=== PATIENT | female | born 1950 | race Caucasian/White ===

== ENCOUNTER → 2016-10-04 | Outpatient (CLI) | payer OTHER | LOC: FIMAGING 10:17 | PROVIDERS: ATTEND Internal Medicine | DX: Z12.31 Encounter for screening mammogram for malignant neoplasm of breast (principal); Z13.820 Encounter for screening for osteoporosis; M85.89 Other specified disorders of bone density and structure, multiple sites | CPT/HCPCS: G0202 ==

== ENCOUNTER → 2017-01-22 | Outpatient (CLI) | payer OTHER | LOC: FIMAGING 16:58 → EDSTATUS 17:01 → FIMAGING 17:01 | PROVIDERS: ATTEND Internal Medicine | DX: R05 Cough (principal) ==

== ENCOUNTER 2017-11-24 04:18 | Inpatient (IN) | payer OTHER ==
[2017-11-24] MEDS ORDERED: NS 1,000 ML IV ONE (04:24)
[2017-11-24] MEDS ORDERED: NITROGLYCERIN 0.4 MG BTL SL PRN (04:24)
--- NOTE | 2017-11-24 04:27 | EDPHY ---
H & P Time Seen by Provider: 11/24/17 04:25 HPI/ROS: HPI CHIEF COMPLAINT: Chest pain. HISTORY OF PRESENT ILLNESS: This is a very pleasant 67-year-old female, presents emergency room substernal chest pain radiates across her chest and down her left arm. Patient states her pain started at midnight. Progressed all night. Getting worse. It is now 430 in the morning. She called 911. She has pain constantly for that time. She thought it was reflux initially. She received full-dose aspirin and nitroglycerin by EMS. It is now feeling better. However still has the discomfort currently 04/05. Denies pleuritic pain or shortness of breath. States she has not had a cardiac evaluation. She does state that she has hyperlipidemia, borderline diabetes. But does not take any medications. Past Medical History: Denies significant medical history however states history hyperlipidemia, borderline diabetes, Past Surgical History: No recent surgery Social History: [facility] her . at bedside. Denies drugs alcohol or tobacco. Family History: Noncontributory ROS REVIEW OF SYSTEMS: 10 Systems were reviewed and negative with the exception of the elements mentioned in the history of present illness. Exam Constitutional triage nursing summary reviewed, vital signs reviewed, awake/ alert. Eyes normal conjunctivae and sclera, EOMI, PERRLA. HENT normal inspection, atraumatic, moist mucus membranes, no epistaxis, neck supple/ no meningismus, no raccoon eyes. Respiratory clear to auscultation bilaterally, normal breath sounds, no respiratory distress, no wheezing. Cardiovascular rate normal, regular rhythm, no murmur, no edema, distal pulses normal. Gastrointestinal soft, non-tender, no rebound, no guarding, normal bowel sounds, no distension, no pulsatile mass. Genitourinary no CVA tenderness. Musculoskeletal no midline vertebral tenderness, full range of motion, no calf swelling, no tenderness of extremities, no meningismus, good pulses, neurovascularly intact. Skin pink, warm, & dry, no rash, skin atraumatic. Neurologic awake, alert and oriented x 3, AAOx3, moves all 4 extremities equally, motor intact, sensory intact, CN II-XII intact, normal cerebellar, normal vision, normal speech. Psychiatric normal mood/affect. Heme/Lymph/Immune no lymphadenopathy. Differential diagnosis includes but is not limited to: ACS, atypical chest pain , pneumothorax, pneumonia, pulmonary embolism, aortic dissection, congestive heart failure, tumor, musculoskeletal pain, esophageal pain, GERD, peptic ulcer disease, pancreatitis Medical Decision Making: Plan for this patient IV establishment full monitoring and evaluation advisor obtain blood work, point care troponin, EKG, rule out acute coronary syndrome, chest x-ray. Re-evaluation: HEART Score for Major Cardiac Events from [email or web address] on 11/24/2017 All calculations should be rechecked by clinician prior to use RESULT SUMMARY: 9 points High Score (7-10 points) Risk of MACE of 50-65%. INPUTS: History > 2 = Highly suspicious EKG > 2 = Significant ST deviation Age > 2 = 64 Risk factors > 2 = 3 risk factors or history of atherosclerotic disease Initial troponin > 1 = 13 normal limit EKG interpretation by me on record in [facility] system. Impression time of EKG 4:26 a.m., sinus rhythm rate of 66, with ST elevation noted lead 1 and aVL concerning for acute ischemia. ST depression lead to 3 AVF concerning for acute ischemia. The EKG is concerning for an ST elevation RI. Given the patient's ongoing chest discomfort I have activated the cardiac alert system cardiac catheterization team. The patient received another dose of nitroglycerin. EKG concerning for acute ST elevation. Spoke with Dr. Back, he will take patient to phlebotomy lab assistant. Admit to ICU after cath. Cath Team activated. 0444: Patient prepped for cath team. Source: Patient, Family, EMS Constitutional: Initial Vital Signs O2 Sat (%) 98 11/24/17 04:24 O2 Delivery Mode Room Air O2 (L/minute) 2 Allergies/Adverse Reactions: epinephrine [From Adrenalin] Allergy (Verified 11/24/17 09:54) Rapid Heart Rate STATINS Allergy (Uncoded 11/24/17 09:54) Muscle Weakness Home Medications: Medication Instructions Recorded Herbals/Supplements -Info Only 1 ea PO DAILY 11/24/17 Magnesium Oxide [Magnesium Oxide 400 mg PO HS 11/24/17 400 mg (*)] Medical Decision Making - Data Points Laboratory Results: Laboratory Results 11/24/17 04:10 11/24/17 04:10 Medications Given: Lisinopril (Zestril) 5 mg PO DAILY DAWOOD Stop: 05/23/18 08:59 Last Admin: 11/24/17 08:55 Dose: 5 mg Metoprolol Tartrate (Lopressor) 25 mg PO BID DAWOOD Stop: 05/23/18 08:59 Last Admin: 11/24/17 19:59 Dose: 25 mg Nitroglycerin (Nitrostat) 0.4 mg SL Q5M PRN PRN Reason: Chest Pain Last Admin: 11/24/17 04:35 Dose: 0.4 mg Ticagrelor (Brilinta) 90 mg PO BID DAWOOD Stop: 05/23/18 18:59 Last Admin: 11/24/17 19:59 Dose: 90 mg Discontinued Medications Sodium Chloride (Ns) 1,000 mls @ 0 mls/hr IV EDNOW ONE; Wide Open PRN Reason: Protocol Stop: 11/24/17 04:25 Last Admin: 11/24/17 04:36 Dose: 1,000 mls Sodium Chloride (Ns) 1,000 mls @ 75 mls/hr IV CONT DAWOOD Stop: 11/24/17 19:04 Last Admin: 11/24/17 07:17 Dose: 1,000 mls Ondansetron HCl (Zofran) 4 mg IVP EDNOW ONE Stop: 11/24/17 04:44 Last Admin: 11/24/17 04:44 Dose: 4 mg Ticagrelor (Brilinta) 180 mg PO ONCE ONE Stop: 11/24/17 05:45 Last Admin: 11/24/17 07:17 Dose: Not Given Point of Care Test Results: Chemistry 11/24/17 04:25 POC Troponin I 0.22 ng/mL H ng/mL (0.00-0.08) Departure - Departure Disposition: [facility] Inpatient Acute Clinical Impression: Chest pain Qualifiers: Chest pain type: unspecified Qualified Code(s): R07.9 - Chest pain, unspecified ST elevation RI (STEMI) Qualifiers: Involved coronary artery: unspecified coronary artery Qualified Code(s): I21.3 - ST elevation (STEMI) myocardial infarction of unspecified site Condition: Serious
[2017-11-24 04:40] LABS: PLATELET COUNT 200 10^3/uL (150-400)
[2017-11-24] MEDS ORDERED: ONDANSETRON 4 MG/2 ML VIAL ONE (04:40)
[2017-11-24] MEDS ORDERED: ONDANSETRON 4 MG/2 ML VIAL IVP ONE (04:43)
[2017-11-24 04:47] LABS: INR 0.88 (0.83-1.16); PROTIME(PATIENT) 12.2 SEC (12.0-15.0)
[2017-11-24] MEDS ORDERED: fentaNYL 100 MCG/2 ML INJ ONE (05:09)
[2017-11-24] MEDS ORDERED: LIDOCAINE 1% 300 MG/30 ML SDV ONE (05:09)
[2017-11-24] MEDS ORDERED: IOPAMIDOL (ISOVUE-370) 150 ML BTL IV ONE (05:10)
[2017-11-24] MEDS ORDERED: MIDAZOLAM 2 MG/2 ML VIAL ONE (05:10)
--- NOTE | 2017-11-24 05:24 | PDGENHP ---
History and Physical - Chief Complaint Chest pain - History of Present Illness 59-year-old female no prior cardiovascular history will get midnight with the onset of substernal chest pressure radiating to both armpits associated with shortness of breath and nausea. She initially thought this was heartburn. She tried antacids. Symptoms progressed. She came to the emergency department by 911. Initial EKG interpreted by Dr. Carpenter showed ST elevation in 1 aVL and a cardiac alert was activated. On my arrival she was continued to have 3 to 4/10 substernal discomfort. She had mild nausea mild diaphoresis with no shortness of breath. She denied PND orthopnea. She has had no palpitations or syncope. Patient's past medical history is rule remarkable for hyperlipidemia. 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 She has no history of hypertension, smoking, diabetes. She has no family history of early heart disease. She takes no medications regularly. She has allergies/sensitivities to epinephrine. She has clear reaction to statins. History Information - Allergies/Home Medication List Allergies/Adverse Reactions: STATINS Allergy (Uncoded 11/24/17 04:29) I have personally reviewed and updated: family history, medical history, social history, surgical history - Past Medical History hyperlipidemia - Surgical History Reports: no pertinent surgical hx - Family History Positive for: non-pertinent (She is very active hiking. She was in the [place] for sleep 2 weeks ago without limitations.) - Social History Smoking Status: Never smoked Review of Systems Review of Systems: ROS: 10pt was reviewed & negative except for what was stated in HPI & below Physical Exam Physical Exam: Temp Pulse Resp BP Pulse Ox 36.7 C 72 18 144/88 H 98 11/24/17 04:26 11/24/17 05:04 11/24/17 05:04 11/24/17 05:04 11/24/17 05:04 O2 (L/minute) 2 Constitutional: no apparent distress Eyes: PERRL, anicteric sclera Ears, Nose, Mouth, Throat: moist mucous membranes Cardiovascular: regular rate and rhythym, no murmur, rub, or gallop, pulses symmetric bilaterally, No systolic murmur, No JVD Peripheral Pulses: 1+: carotid (R), carotid (L), femoral (R), femoral (L), dorsalis-pedis (R), dorsalis-pedis (L) Respiratory: no respiratory distress, no rales or rhonchi Gastrointestinal: normoactive bowel sounds, soft, non-tender abdomen, no palpable masses, No tenderness Genitourinary: no bladder fullness Skin: normal color, No rash Musculoskeletal: full muscle strength Neurologic: AAOx3, sensation intact bilaterally, No facial droop Psychiatric: interacting appropriately, not anxious Lymph, Heme, Immunologic: no cervical LAD, no supraclavicular LAD Lab Data & Imaging Review 11/24/17 04:10 11/24/17 04:10 WBC 9.04 10^3/uL (3.80-9.50) 11/24/17 04:10 RBC 4.71 10^6/uL (4.18-5.33) 11/24/17 04:10 Hgb 14.5 g/dL (12.6-16.3) 11/24/17 04:10 Hct 42.6 % (38.0-47.0) 11/24/17 04:10 MCV 90.4 fL (81.5-99.8) 11/24/17 04:10 MCH 30.8 pg (27.9-34.1) 11/24/17 04:10 MCHC 34.0 g/dL (32.4-36.7) 11/24/17 04:10 RDW 13.6 % (11.5-15.2) 11/24/17 04:10 Plt Count 200 10^3/uL (150-400) 11/24/17 04:10 MPV 10.1 fL (8.7-11.7) 11/24/17 04:10 Neut % (Auto) 63.2 % (39.3-74.2) 11/24/17 04:10 Lymph % (Auto) 28.2 % (15.0-45.0) 11/24/17 04:10 [place] % (Auto) 5.9 % (4.5-13.0) 11/24/17 04:10 Eos % (Auto) 1.8 % (0.6-7.6) 11/24/17 04:10 Baso % (Auto) 0.6 % (0.3-1.7) 11/24/17 04:10 Nucleat RBC Rel Count 0.0 % (0.0-0.2) 11/24/17 04:10 Absolute Neuts (auto) 5.72 10^3/uL (1.70-6.50) 11/24/17 04:10 Absolute Lymphs (auto) 2.55 10^3/uL (1.00-3.00) 11/24/17 04:10 Absolute Monos (auto) 0.53 10^3/uL (0.30-0.80) 11/24/17 04:10 Absolute Eos (auto) 0.16 10^3/uL (0.03-0.40) 11/24/17 04:10 Absolute Basos (auto) 0.05 10^3/uL (0.02-0.10) 11/24/17 04:10 Absolute Nucleated RBC 0.00 10^3/uL (0-0.01) 11/24/17 04:10 Immature Gran % 0.3 % (0.0-1.1) 11/24/17 04:10 Immature Gran # 0.03 10^3/uL (0.00-0.10) 11/24/17 04:10 PT 12.2 SEC (12.0-15.0) 11/24/17 04:10 INR 0.88 (0.83-1.16) 11/24/17 04:10 APTT 28.3 SEC (23.0-38.0) 11/24/17 04:10 Sodium 138 mEq/L (135-145) 11/24/17 04:10 Potassium 4.1 mEq/L (3.3-5.0) 11/24/17 04:10 Chloride 101 mEq/L (97-110) 11/24/17 04:10 Carbon Dioxide 25 mEq/l (22-31) 11/24/17 04:10 Anion Gap 12 mEq/L (8-16) 11/24/17 04:10 BUN 14 mg/dL (7-23) 11/24/17 04:10 Creatinine 0.7 mg/dL (0.6-1.0) 11/24/17 04:10 Estimated GFR > 60 11/24/17 04:10 Glucose 133 mg/dL (70-100) H 11/24/17 04:10 Calcium 10.3 mg/dL (8.5-10.4) 11/24/17 04:10 Magnesium 1.9 mg/dL (1.6-2.3) 11/24/17 04:10 Total Bilirubin 0.4 mg/dL (0.1-1.4) 11/24/17 04:10 Conjugated Bilirubin 0.1 mg/dL (0.0-0.5) 11/24/17 04:10 Unconjugated Bilirubin 0.3 mg/dL (0.0-1.1) 11/24/17 04:10 AST 26 IU/L (14-46) 11/24/17 04:10 ALT 39 IU/L (9-52) 11/24/17 04:10 Alkaline Phosphatase 109 IU/L (38-126) 11/24/17 04:10 POC Troponin I 0.22 ng/mL (0.00-0.08) H 11/24/17 04:25 NT-Pro-B Natriuret Pep 81 pg/mL (0-125) 11/24/17 04:10 Total Protein 7.3 g/dL (6.3-8.2) 11/24/17 04:10 Albumin 4.3 g/dL (3.5-5.0) 11/24/17 04:10 EKG additional interpertation: EKG reveals sinus rhythm. There is borderline ST elevation in [address] depression in the inferior leads. Assessment & Plan Assessment: Chest pain (Acute) ST elevation [place] (STEMI) (Acute) ST segment elevation myocardial infarction with elevation in troponin, abnormal EKG, classic history . Patient be taken the cardiac director of cardiac cath lab directly for angiography/intervention. Risks and benefits of this approach were discussed the patient. Differential diagnosis could be broadened attending results.
--- NOTE | 2017-11-24 05:24 | PDPROPOC ---
Sedation Plan of Care Sedation Plan of Care: vital signs stable, mental status noted, patient educated of risks, benefits, alternatives, patient can tolerate sedation ASA Classification: ASA 3 Planned drugs: fentanyl, midazolam Mallampati Score: Class 1 Mallampati Reference Image: Patient passed 3-3-2 rule?: Yes
[2017-11-24] MEDS ORDERED: BIVALIRUDIN 250 MG/5 ML VIAL IV ONE (05:31)
[2017-11-24] MEDS ORDERED: TICAGRELOR 90 MG TAB PO ONE (05:44)
[2017-11-24] MEDS ORDERED: ONDANSETRON 4 MG/2 ML VIAL IVP PRN (05:44)
[2017-11-24] MEDS ORDERED: ATROPINE SULFATE 1 MG/10 ML SYR IVP PRN (05:44)
[2017-11-24] MEDS ORDERED: NS 1,000 ML IV SCH (05:45)
[2017-11-24] MEDS ORDERED: TICAGRELOR 90 MG TAB ONE (05:48)
--- NOTE | 2017-11-24 05:52 | PDDXCAT ---
Diagnostic Cath Note - . Date: 11/24/17 Floor Care Specialist: Wong Indication: other (STEMI cardiac alert) - Procedure Access: right groin Procedure: left heart catheterization, coronary angiography, left ventriculogram - Materials Left Heart Cath size: 6F Left Heart Cath materials: standard multipack (JL4, JR4, pigtail) - Findings-Left Heart Catheterization LM: Unobstructed LAD: [id number]-[id number]-[id number] nonobstructive atheroma in the proximal LAD. Thrombotic occlusion of the principal diagonal LCX: Large vessel with diffuse luminal irregularities RCA: Dominant: Luminal irregularities not more than 20% EDP: 18 mm of mercury LVEF: 45% Wall motion: Lateral akinesis Complications: None Estimated blood loss: <50ml Closure method: Angioseal Assessment: ST segment elevation myocardial infarction with thrombotic occlusion of the principal diagonal. Reduced left ventricular systolic function ejection fraction 45% with lateral akinesis. Plan: PCI Intervention: After reviewing diagnostic angiograms elected proceed with emergency PCI. Patient was anticoagulated with Angiomax. Therapeutic ACT was confirmed. Using a 6 Azeri JL4 guiding catheter left main coronary selectively intubated. Using a 0.014 luge wire the diagonal stenosis was crossed and a wire placed in the distal vessel. Was primarily stented with a 2.5 x 12 mm synergy stent taken to 15 atmospheres. Repeat angiogram showed ANDREW grade 3 flow. Ventriculogram was performed postprocedure. Wire was withdrawn. Final orthogonal angiograms were obtained. Sheath was removed using Angio-Seal the patient is taken to the ICU for continued care. Conclusions: Thrombotic occlusion the principal diagonal status post successful PCI and stenting. Aggressive secondary prevention. Statins will need to be readdressed in light of her prior history of myositis. Considerations for PC SK 9 inhibitor. Beta- blockade Dyllan inhibition dual antiplatelet therapy. Patient Problems: Problems Problem Status Onset Chest pain Acute ST elevation [place] (STEMI) Acute
--- NOTE | 2017-11-24 08:33 | PDMN ---
Medical Necessity Medical necessity: MCG M230 RI - 2 days; STEMI- emergent cardiac cath with PCI to principal diagonal
[2017-11-24] MEDS: METOPROLOL TARTRATE 25 MG TAB PO SCH ×2 (08:55→19:59)
[2017-11-24] MEDS: LISINOPRIL 5 MG TAB PO SCH (08:55)
[2017-11-24] MEDS ORDERED: TICAGRELOR 90 MG TAB PO SCH (09:00)
[2017-11-24 09:01] LABS: PLATELET COUNT 174 10^3/uL (150-400)
--- NOTE | 2017-11-24 09:06 | ASMTCMCOM ---
CM Note CM Note Notes: 67yr old female admitted for CP, AK. Went to laboratory apparatus glass grinder for PCI. Has a Hx of HLD. Lives with her in [place]. Cardiac Rehab to consult as well as Transition Care. No other discharge needs anticipated. Date Signed: 11/24/2017 09:05 AM Electronically Signed By:Madalyn Henderson LCSW
--- NOTE | 2017-11-24 09:15 | CPEKG ---
Test Reason : OPEN Blood Pressure : / mmHG Vent. Rate : 072 BPM Atrial Rate : 071 BPM P-R Int : 192 ms QRS Dur : 089 ms QT Int : 416 ms P-R-T Axes : 062 085 091 degrees QTc Int : 456 ms Sinus rhythm evolving lateral infarct When compared with ECG of 11/24/2017 changes consistent with evolving lateral CT Confirmed by Alize Frias ([id number]) on 11/24/2017 9:14:58 AM Referred By: Confirmed By:Alize Frias
[2017-11-24 10:14] LABS: CREATINE KINASE 459 IU/L (0-156)
--- NOTE | 2017-11-24 11:09 | SOAPPROG ---
[facility] Progress Note Assessment/Plan: Assessment: 67-year-old female with prior medical history for atherogenic dyslipidemia who presents early with a high lateral myocardial infarction related to a thrombotic Anna occluded diagonal branch. She presented within 4 hr of chest discomfort and underwent emergent cardiac catheterization with PCI/stenting of the diagonal branch. Her ejection fraction was noted to be very mildly reduced by left ventriculography. Currently she is chest pain free on appropriate guideline directed medical therapy. Unfortunately, in the past, she has had a significant reaction to statin medications. She states that she had severe lower extremity weakness and pain that took her several years to recover from. Plan: 1. She will continue her current medications. 2. We will gradually advance her activity levels. 3. She will continue to be monitored on telemetry. 4. I will discuss with her alternate options for control of her dyslipidemia prior to hospital discharge. 11/24/17 11:08 Subjective: The patient was seen and examined. The chart was reviewed. She presented early with a lateral STEM I. She underwent urgent cardiac catheterization with PCI/stenting of a thrombotically occluded diagonal branch. Her ejection fraction was noted to be 45%. Today she states that she feels well. She has no ongoing chest discomfort. She has not experienced any arrhythmia. Her sheaths were pulled earlier today. She has no groin discomfort. She is currently on dual anti-platelet therapy, beta-nadine therapy and Dyllan inhibition. She has been intolerant to statin medications in the past with fairly profound lower extremity myalgias and weakness. Objective: Vital Signs Temp Pulse Resp BP Pulse Ox 36.5 C 66 11 L 109/88 H 98 11/24/17 08:00 11/24/17 10:30 11/24/17 10:30 11/24/17 10:30 11/24/17 10:30 Laboratory Results 11/24/17 08:40 11/24/17 08:40 11/23/17 11/24/17 11/25/17 05:59 05:59 05:59 Intake Total 1000 Output Total 0 Balance 1000 PT 12.2 SEC (12.0-15.0) 11/24/17 04:10 INR 0.88 (0.83-1.16) 11/24/17 04:10 Physical Exam - Physical Exam General Appearance: WD/WN, no apparent distress Neck: non-tender, full range of motion Respiratory: chest non-tender, lungs clear Cardiac/Chest: regular rate, rhythm, gallop (Loud 4th heart sound), No edema, No JVD Peripheral Pulses: 2+: carotid (R), carotid (L) Abdomen: non-tender, soft Pelvic Exam: deferred Rectal: deferred Extremities: normal range of motion Neuro/Psych: alert, oriented x 3 ICD10 Worksheet Patient Problems: Problems Problem Status Onset Chest pain Acute ST elevation [place] (STEMI) Acute
[2017-11-24 13:04] LABS: CREATINE KINASE 592 IU/L (0-156)
[2017-11-24 16:14] LABS: CREATINE KINASE 609 IU/L (0-156)
[2017-11-24] MEDS: TICAGRELOR 90 MG TAB PO SCH (19:59)
[2017-11-24 21:22] LABS: CREATINE KINASE 570 IU/L (0-156)
--- NOTE | 2017-11-24 21:41 | CPEKG ---
Test Reason : OPEN Blood Pressure : / mmHG Vent. Rate : 066 BPM Atrial Rate : 066 BPM P-R Int : 189 ms QRS Dur : 090 ms QT Int : 414 ms P-R-T Axes : 058 004 017 degrees QTc Int : 434 ms Sinus rhythm Minimal ST depression, inferior leads Borderline ST elevation, lateral leads Confirmed by Misael Carpenter ([id number]) on 11/24/2017 9:41:16 PM Referred By: Confirmed By:Misael Carpenter
--- NOTE | 2017-11-24 21:41 | CPEKG ---
Test Reason : OPEN Blood Pressure : / mmHG Vent. Rate : 069 BPM Atrial Rate : 068 BPM P-R Int : 192 ms QRS Dur : 090 ms QT Int : 413 ms P-R-T Axes : 066 046 053 degrees QTc Int : 443 ms Sinus rhythm Anteroseptal infarct, age indeterminate Confirmed by Misael Carpenter ([id number]) on 11/24/2017 9:41:17 PM Referred By: Confirmed By:Misael Carpenter
[2017-11-25] MEDS ORDERED: TICAGRELOR 90 MG TAB PO SCH
[2017-11-25] MEDS ORDERED: ASPIRIN EC 81 MG TAB PO SCH (09:00)
[2017-11-25] MEDS: METOPROLOL TARTRATE 25 MG TAB PO SCH (09:28)
[2017-11-25] MEDS: LISINOPRIL 5 MG TAB PO SCH (09:28)
[2017-11-25] MEDS: TICAGRELOR 90 MG TAB PO SCH (09:28)
--- NOTE | 2017-11-25 11:23 | ECHO ---
[email or web address] [address] Main: [phone] Fax: Transthoracic Echocardiogram Name: DERRICK LUU MR#: [id number] Study Date: 11/25/2017 Study Time: 08:07 AM Date of : 1950 Age: 67 year(s) Height: 170.2 cm (67 in.) Weight: 65.77 kg (145 lb.) BSA: 1.76 m2 Gender: Female Examination: Echo Indication: post mi Image Quality: Adequate Contrast: Requested by: Yared Back BP: / Heart Rate: Rhythm: Normal sinus rhythm Indication: post mi Procedure Staff Tool Salvage Worker: Beryl Beal [facility] Reading Physician: Jacky Galvin MD Requesting Provider: Conclusions: Normal size left ventricle. The ejection fraction is visually estimated to be 55 %. Mild anterolateral hypokinesis. The mitral valve is normal in appearance and function. Mild mitral valve regurgitation is present. The aortic valve is tri-leaflet. Aortic sclerosis is present. Trivial aortic valve regurgitation. No aortic valve stenosis is present. Right ventricular systolic pressure measures 20mmHg. No old studies for comparison. Measurements: Chambers Valvular Assessment AV/MV Valvular Assessment TV/PV Normal Normal Normal Name Value Range Name Value Range Name Value Range Ao Keysha (2D): 3.0 cm (1.4 cm-2.6 AV Vmax: 1.13 m/s (1 m/s-1.7 TR Vmax: 1.94 mm/s ( - ) cm) m/s) TR PGmax: 15 mmHg ( - ) IVSd (2D): 1.1 cm (0.6 cm-1.1 AV maxP mmHg ( - ) syst. PAP: 20 mmHg ( - ) cm) AV meanP mmHg ( - ) PV Vmax: 0.62 m/s (0.6 m/s-0.9 LVDd (2D): 3.8 cm (3.9 cm-5.3 SUMANTH (VTI): 2.0 cm ( - ) m/s) cm) MV E Vmax: 0.57 m/s ( - ) PV PGmax: 2 mmHg ( - ) LVDs (2D): 2.5 cm (2.1 cm-4 MV A Vmax: 0.63 m/s ( - ) cm) MV E/A: 0.90 ( - ) LVPWd (2D): 1.0 cm ( - ) MV PHT: 0.079 s ( - ) LVOTd 2.0 cm 2.0 cm mm MVA (PHT): 2.8 s ( - ) LVEF (BP): 56 % (>=55 %) Visual EF: 55 % Continued Measurements: Patient: DERRICK LUU Study Date: 11/25/2017 Page 1 of 2 08:07 AM Chambers Valvular Assessment AV/MV Valvular Assessment TV/PV Name Value Name Value Name Value LADs: 3.0 cm MV DecTime: 264 m/s CVP (est.): 5 mmHg LADs Lon.2 cm MV E' Septal: 0.07 m/s LA Area: 11.1 cm2 MV E/E' Septal: 7.90 LA Volume: 36 ml MV E/E' Lateral: 7.70 LA Volume Index: 20.5 ml/m2 RA Area: 13.9 cm2 Additional Vessels Name Value Ao Ascendin.9 cm Inferior Vena Cava: 1.7 cm Findings: Left Ventricle: Normal size left ventricle. No LV hypertrophy. Normal global systolic LV function. The ejection fraction is visually estimated to be 55 %. Normal diastolic LV function. Mild anterolateral hypokinesis. Right Ventricle: Normal size right ventricle. Normal RV function. Left Atrium: The left atrium is normal in size. Right Atrium: The right atrium is normal in size. Mitral Valve: The mitral valve is normal in appearance and function. Mild mitral valve regurgitation is present. No mitral stenosis is present. Aortic Valve: The aortic valve is tri-leaflet. Aortic sclerosis is present. Trivial aortic valve regurgitation. No aortic valve stenosis is present. Tricuspid Valve: The tricuspid valve is normal in appearance and function. Trivial tricuspid valve regurgitation. The pulmonary artery pressure is normal. Right ventricular systolic pressure measures 20mmHg. Pulmonic Valve: The pulmonic valve is normal in appearance and function. Aorta: The aorta is normal. Normal size aortic root measuring 3.0 cm. Normal size ascending aorta measuring 2.9 cm. IVC: The IVC is normal sized. Pericardium: No pericardial effusion. (No Signature Object) Patient: DERRICK LUU Study Date: 11/25/2017 Page 2 of 2 08:07 AM [id number]
[2017-11-25 11:27] VITALS: BP 127/62
--- NOTE | 2017-11-25 16:55 | CPEKG ---
Test Reason : OPEN Blood Pressure : / mmHG Vent. Rate : 067 BPM Atrial Rate : 067 BPM P-R Int : 194 ms QRS Dur : 086 ms QT Int : 456 ms P-R-T Axes : 052 097 124 degrees QTc Int : 482 ms Sinus rhythm Probable left atrial enlargement Anteroseptal infarct, age indeterminate Lateral leads are also involved When compared with ECG of 11/24/2017, changes consistent with evolving lateral MT Confirmed by Alize Frias ([id number]) on 11/25/2017 4:55:00 PM Referred By: Confirmed By:Alize Frias
[2017-11-25] MEDS ORDERED: MAGNESIUM OXIDE 400 MG TAB PO SCH (21:00)
--- NOTE | 2017-11-26 06:03 | GDS ---
ADMISSION DIAGNOSES: 1. Chest pain. 2. ST-elevation myocardial infarction. DISCHARGE DIAGNOSES: 1. Status post ST-elevation myocardial infarction. 2. Cardiac angiogram with thrombotic occlusion of the principal diagonal and successful stent placem ent. HOSPITAL COURSE: This is a 67-year-old female who came in through the emergency room. She had no pr ior cardiovascular history. She developed substernal chest pain with pain radiating into her arm pit s bilaterally, shortness of breath and nausea. Earlier in the evening she had heartburn treating it with antacids. She presented to the emergency room where an EKG confirmed ST-elevation [place]. Dr. Leif Back was called in and took her immediately to the cardiac cathode maker. Using right groin access approach, he found mild to moderate nonobstructive atheroma in the proximal LAD, thrombotic occlusio n of the principal diagonal. Her LVEF was 45%. She had lateral akinesis wall motion. There were no complications with placement of stent. She then was taken to the [facility] for observation and recovery, then taken to overflow ICU for overnight observation. She has done well. She has had no recurring c hest discomfort. Groin site is intact with no bleeding. She has been up ambulating with no problems . EKG remained stable with regular sinus rhythm. At this time, she currently is stable for discharg e. She has been intolerant to statins in the past. This will need to be readdressed. She has a his tory of myositis. Dr. Back is considering PCSK9 inhibitor in place of statins. She will be on b eta nadine, ROSS inhibitor and dual anti-platelet therapy. ALLERGIES: Epinephrine and statins. MEDICATIONS: She will go home on magnesium oxide 400 mg at bedtime, herbal supplements 1 daily at be dtime, aspirin 81 mg daily, lisinopril 5 mg daily, Lopressor 25 mg twice daily, Nitrostat 0.4 mg as n eeded for chest pain, Brilinta 90 mg twice daily. PHYSICAL EXAMINATION: GENERAL: On day of discharge, she feels well. VITAL SIGNS: Her blood pressu re is 127/62, heart rate 62, oxygen saturation 94% on room air, temperature 36.4. HEART: Rate regul ar. No murmurs, rubs, gallops. LUNGS: Sounds are clear to auscultation. No wheezes, rales, or rho nchi. EXTREMITIES: No peripheral edema bilaterally. Pulses are 2+ bilaterally. Right groin site i s intact with minimal ecchymosis and tenderness. No hematoma noted. DISCHARGE PLAN: 1. Medications were reviewed with her. 2. Right groin precautions were reviewed with her to be in place for 1 week. 3. No heavy lifting, pushing, pulling greater than 10 pounds. No tub bath, but okay to shower. 4. Advised to keep bowels soft. Okay to use stool softener as needed. Lipids, cholesterol 201, tri glycerides 131, HDL 48, and LDL 127. 5. She is to participate in cardiac rehab. They will call with an appointment. 6. Followup appointment December 09 at 2:45 with Dominga Coronado, nurse practitioner. 7. At this time, she currently is stable for discharge. /[id number]/MODL
== END 2017-11-25 12:05 | disposition home or self-care (01) | DRG 247 ==
LOC: EDUNIT# → F2N 05:51
PROVIDERS: ADMIT Internal Medicine Interventional Cardiology; ATTEND Internal Medicine Interventional Cardiology
PROC: B2151ZZ Fluoroscopy of Left Heart using Low Osmolar Contrast (ICD-10-PCS; principal; 2017-11-24)
PROC: 4A023N7 Measurement of Cardiac Sampling and Pressure, Left Heart, Percutaneous Approach (ICD-10-PCS; principal; 2017-11-24)
PROC: B2111ZZ Fluoroscopy of Multiple Coronary Arteries using Low Osmolar Contrast (ICD-10-PCS; principal; 2017-11-24)
PROC: 027034Z Dilation of Coronary Artery, One Artery with Drug-eluting Intraluminal Device, Percutaneous Approach (ICD-10-PCS; principal; 2017-11-24)
DX: I21.3 ST elevation (STEMI) myocardial infarction of unspecified site (principal); E78.5 Hyperlipidemia, unspecified
CPT/HCPCS: 84484-PO; 96374; C1769; C1874; C1887; C9606; J0461; J0583; J1644; J2250; J2405; J3010; Q9967